=== PATIENT | male | born 1995 | race Caucasian/White ===

== ENCOUNTER 2019-08-10 12:11 | Emergency (ER) | payer MEDICAID ==
[2019-08-10 12:47] VITALS: BP 146/81
--- NOTE | 2019-08-10 14:13 | ED Physician Documentation ---
PD HPI MHE - Stated complaint Stated Complaint: PANIC ATTACK - Chief complaint Chief Complaint: MHE - History obtained from History obtained from: Patient - History of Present Illness Primary symptom: Depression, Anxiety. No: Suicidal ideation Timing - onset: How many days ago (feeling anxious about 10 days now. Had traveled to [place] by himself and was there few weeks. Returned about 6 weeks ago. Onset feeling anxious, trouble sleeping 10 days ago. No fever, headache, numbness nor weakness. No adenopathy. He felt well during travels. No animal bites while there. No exposure to bats (did go into a cave there but no proximity to bats that he could tell).) Contributing factors: Off meds (he says he had been on SSRI and risperodone, and had counseling. Had not been to the counselor for few months. No meds few months.). No: Substance abuse - ETOH, Substance abuse - drugs Similar symptoms before: Diagnosis (anxiety and depression) Recently seen: Not recently seen Review of Systems Constitutional: reports: Myalgias, Fatigue. denies: Fever, Chills Eyes: denies: Photophobia Ears: denies: Ear pain Nose: denies: Rhinorrhea / runny nose, Congestion Throat: denies: Sore throat Cardiac: denies: Chest pain / pressure, Palpitations Respiratory: denies: Dyspnea, Cough GI: denies: Abdominal Pain, Nausea, Vomiting, Diarrhea Skin: denies: Rash, Lesions Musculoskeletal: denies: Neck pain, Back pain Neurologic: denies: Numbness, Difficulty speaking, Near syncope, Confused, Headache Psychiatric: reports: Depressed, Anxiety, Insomnia. denies: Suicidal, Hallucinations, Delusions Endocrine: denies: Polydypsia, Polyuria, Weight loss PD PAST MEDICAL HISTORY - Past Medical History Cardiovascular: None Respiratory: None Neuro: None Endocrine/Autoimmune: None Psych: Depression, Anxiety - Present Medications Home Medications: Ambulatory Orders Medication Instructions Recorded Confirmed LORazepam [Ativan] 1 mg PO BID PRN #10 tablet 08/10/19 PARoxetine HCl [Paroxetine HCl] 20 mg PO DAILY #30 tablet 08/10/19 risperiDONE [Risperidone] 2 mg PO QPM PRN #30 tablet 08/10/19 - Allergies Allergies/Adverse Reactions: Allergies Allergy/AdvReac Type Severity Reaction Status Date / Time No Known Drug Allergies Allergy Verified 08/10/19 12:47 PD ED PE NORMAL - Vitals Vital signs reviewed: Yes - HEENT HEENT: Atraumatic, Pharynx benign - Neck Neck: Supple, no meningeal sign, No adenopathy - Cardiac Cardiac: RRR, No murmur - Respiratory Respiratory: Clear bilaterally - Abdomen Abdomen: Normal bowel sounds, Soft, Non tender - Derm Derm: Normal color, Warm and dry, No rash - Extremities Extremities: No tenderness to palpate, Normal ROM s pain - Neuro Neuro: Alert and oriented X 3, electrophysiologist 2-12 intact, No motor deficit, No sensory deficit, Normal speech Eye Opening: Spontaneous Motor: Obeys Commands Verbal: Oriented GCS Score: 15 Results - Vitals Vitals: Vital Signs - 24 hr 08/10/19 12:42 Temperature 36.6 C Heart Rate 70 Respiratory 22 Rate Blood Pressure 146/81 H O2 Saturation 100 Oxygen O2 Source Room air - Labs Labs: Laboratory Tests 08/10/19 08/10/19 08/10/19 14:50 14:50 14:50 WBC 7.2 RBC 5.01 Hgb 15.5 Hct 46.2 MCV 92.2 MCH 30.9 MCHC 33.5 RDW 12.2 Plt Count 230 MPV 10.6 Neut # (Auto) 4.1 Lymph # (Auto) 2.5 [place] # (Auto) 0.5 Eos # (Auto) 0.0 Baso # (Auto) 0.1 Absolute Nucleated RBC 0.00 Nucleated RBC % 0.0 Sodium 141 Potassium 3.6 Chloride 103 Carbon Dioxide 29 Anion Gap 9.0 BUN 11 Creatinine 0.9 Estimated GFR (MDRD) 102 Glucose 156 H Calcium 10.0 Total Bilirubin 1.0 AST 21 ALT 19 Alkaline Phosphatase 53 Total Protein 7.9 Albumin 4.9 Globulin 3.0 Albumin/Globulin Ratio 1.6 Lipase 30 TSH 0.68 PD MEDICAL DECISION MAKING - ED course Complexity details: considered differential (visiting from [place], staying with brother. Having marked anxiety. Concern about rabies when in [place] but did not have animal bite or expsoure (did go into a cave at one point but no bats were close to him). Has history of anxiety and depression. Was on SSRI and Risperodone, but not currently on meds. He is not psychotic. Is concerned about illness but not overly fixated nor really delusional, just anxious. ), d/w patient Departure - Departure Disposition: 01 Home, Self Care Clinical Impression: Anxiety, generalized, Viral syndrome Insomnia Qualifiers: Insomnia type: unspecified Qualified Code(s): G47.00 - Insomnia, unspecified Condition: Stable Record reviewed to determine appropriate education?: Yes Instructions: ED Stress React, ED Viral Syndrome Prescriptions: LORazepam [Ativan] 1 mg PO BID PRN #10 tablet PRN Reason: Anxiety PARoxetine HCl [Paroxetine HCl] 20 mg PO DAILY #30 tablet risperiDONE [Risperidone] 2 mg PO QPM PRN #30 tablet PRN Reason: Insomnia Comments: Stay well-hydrated. It sounds like you may have a viral type illness given some your symptoms. I would anticipate this to be shorter-term. Tylenol or ibuprofen if needed for aches or mild feverish. For your anxiety and insomnia, use risperidone nightly as needed for sleep and could even take 1/2 to 1 tablet regularly if needed for helping with general anxiety as well. Start paroxetine daily to help longer-term with depression and anxiety. In the short-term can use Lorazepam up to twice daily as needed for anxiety. This would be considered short-term bridging to help with some of the anxiety until the other medicines are becoming more effective and he have a little bit better sleep. Follow-up with your primary care back home and also reinitiate some counseling and psychological ongoing care. Return as needed. Discharge Date/Time: 08/10/19 16:22
[2019-08-10] MEDS ORDERED: risperiDONE 1 MG TABLET PO STA (14:39)
[2019-08-10] MEDS ORDERED: LORazepam 1 MG TABLET PO STA (14:39)
[2019-08-10 15:02] LABS: BASOPHILS # (AUTO) 0.1 10^3/uL (0.0-0.1); BASOPHILS % (AUTO) 0.7 %; EOSINOPHILS % (AUTO) 0.6 %; HGB - HEMOGLOBIN 15.5 g/dL (14.0-18.0); LYMPHOCYTES # (AUTO) 2.5 10^3/uL (1.5-3.5); LYMPHOCYTES % (AUTO) 34.1 %; MEAN CORPUSCULAR HEMOGLOBIN 30.9 pg (27.0-31.0); MEAN CORPUSCULAR HGB CONC 33.5 g/dL (32.0-36.0); MEAN CORPUSCULAR VOLUME 92.2 fL (80.0-94.0); MEAN PLATELET VOLUME 10.6 fL (7.4-11.4); MONOCYTES # (AUTO) 0.5 10^3/uL (0.0-1.0); MONOCYTES % (AUTO) 7.2 %; NEUTROPHILS # (AUTO) 4.1 10^3/uL (1.5-6.6); NEUTROPHILS % (AUTO) 57.1 %; PLT - PLATELET COUNT 230 10^3/uL (130-450); RED BLOOD COUNT 5.01 10^6/uL (4.70-6.10); RED CELL DISTRIBUTION WIDTH 12.2 % (12.0-15.0); WHITE BLOOD COUNT 7.2 x10^3/uL (4.8-10.8)
[2019-08-10 15:11] LABS: ALBUMIN 4.9 g/dL (3.2-5.5); ALBUMIN/GLOBULIN RATIO 1.6 (1.0-2.2); CREATININE 0.9 mg/dL (0.6-1.2); TOTAL PROTEIN 7.9 g/dL (6.7-8.2)
== END 2019-08-10 16:22 | disposition home or self-care (01) ==
LOC: ED 12:11
DX: F41.1 Generalized anxiety disorder (principal); B34.9 Viral infection, unspecified; G47.00 Insomnia, unspecified
CPT/HCPCS: 36415; 80053; 83690; 84443; 85025; 99283; A9270; J8499